=== PATIENT | male | born 1995 | race Caucasian/White ===

== ENCOUNTER → 2016-05-26 | Emergency (ER) | payer OTHER ==
[~2016-05-26] MED LIST: ONDANSETRON 4 MG/2 ML VIAL IVPUSH ONE; ONDANSETRON 4 MG/2 ML VIAL ONE; SODIUM CHLORIDE 0.9% 1000 ML INFUS.BAG IV ONE
[2016-05-26 16:32] VITALS: BP 137/95; PULSE 103; TEMP 97.8; BMI 25.8
[2016-05-26 20:18] LABS: MCH 28.5 pg (25.7-33.7); MCHC 32.2 g/dl (32.0-35.9); MEAN CELL VOLUME 88.5 fl (80-96); MEAN PLT VOLUME 11.8 fl (7.5-11.1); PLATELET COUNT 157 K/MM3 (134-434); RDW 13.7 % (11.9-15.9); WHITE BLOOD COUNT 17.6 K/mm3 (4.0-10.0)
[2016-05-26 21:00] LABS: ALBUMIN 4.7 g/dl (3.4-5.0); ANION GAP 8 (8-16); BILIRUBIN,TOTAL 1.2 mg/dL (0.2-1.0); CALCIUM 10.1 mg/dL (8.5-10.1); CO2 26 mmol/L (21-32); CREATININE 1.1 mg/dL (0.7-1.3); GLUCOSE,RANDOM 104 mg/dL (74-106); SGOT/AST 22 U/L (15-37); SGPT/ALT 34 U/L (12-78); TOT PROT 7.8 g/dl (6.4-8.2)
[2016-05-26 21:01] LABS: ALK PHOS 87 U/L (45-117)
[2016-05-26 21:08] LABS: PLATELET ESTIMATE ADEQUATE (NORMAL)
--- NOTE | 2016-05-26 21:30 | PDOC ---
History of Present Illness - General Chief Complaint: Pain, Acute Stated Complaint: VOMITING/DIARRHEA Time Seen by Provider: 05/26/16 19:32 - History of Present Illness Initial Comments: 05/26/16 21:26 CHIEF COMPLAINT: abdominal pain w/ persistent vomiting/diarrhea HISTORY OF PRESENT ILLNESS: 20 yo M with no PMH presents to ED with abdominal pain accompanied by vomiting and diarrhea since this morning. Patient reports having at least 8 episodes of vomiting and 6 episodes of diarrhea since 11 am today. He reports eating "halal food" around 6 pm last night and has not had anything since "other than a little Gatorade today, but then I threw it up." He has not eaten any solid foods today. He complains of a subjective fever at home but is not febrile on arrival to ED. He describes the pain as epigastric but denies any blood in his vomit or diarrhea. No recent travel or sick contacts. PAST MEDICAL HISTORY: Denies past medical history FAMILY HISTORY: Denies SOCIAL HISTORY: Lives at home with family. Denies tobacco, alcohol, illicit drug use. SURGICAL HISTORY: Denies ALLERGIES: No known drug allergies REVIEW OF SYSTEMS General/Constitutional: Denies fever or chills. Denies weakness, weight change. HEENT: Denies change in vision. Denies ear pain or discharge. Denies sore throat. Cardiovascular: Denies chest pain or shortness of breath. Respiratory: Denies cough, wheezing, or hemoptysis. Gastrointestinal: Nausea, vomiting, diarrhea since this morning. Denies rectal bleeding. Genitourinary: Denies dysuria, frequency, or change in urination. Musculoskeletal: Denies joint or muscle swelling or pain. Denies neck or back pain. Skin and breasts: Denies rash or easy bruising. Neurologic: Denies headache, vertigo, loss of consciousness, or loss of sensation. PHYSICAL EXAM General Appearance: Well-appearing, appropriately dressed. No apparent distress , no intoxication. HEENT: EOMI, PERRLA, normal ENT inspection, normal voice, TMs normal, pharynx normal. No conjunctival pallor. No photophobia, scleral icterus. Neck: Supple. Trachea midline. No tenderness, rigidity, carotid bruit, stridor , lymphadenopathy, or thyromegaly. Respiratory/Chest: Lungs CTAB. No shortness of breath, chest tenderness, respiratory distress, accessory muscle use. No crackles, rales, rhonchi, stridor , wheezing, dullness Cardiovascular: RRR. S1, S2. No JVD, murmur, bradycardia, tachycardia. Vascular Pulses: Dorsalis-Pedis (R): 2+, Dorsalis-Pedis (L): 2+ Gastrointestinal/Abdominal: Mild periumbilical tenderness on deep palpation. Normal bowel sounds. Abdomen soft, non-distended. No tenderness or rebound tenderness. No organomegaly, pulsatile mass, guarding, hernia, hepatomegaly, splenomegaly. Lymphatic: No adenopathy, tenderness. Musculoskeletal/Extremities: Normal inspection. FROM of all extremities, normal capillary refill. Pelvis Stable. No CVA tenderness. No tenderness to extremities, pedal edema, swelling, erythema or deformity. Integumentary: Appropriate color, dry, warm. No cyanosis, erythema, jaundice or rash Neurologic: color maker dyer II-XII intact. Fully oriented, alert. Appropriate mood/affect. Motor strength 5/5. No appreciable EOM palsy, facial droop or sensory deficit. 05/26/16 21:44 Past History - Past Medical History Allergies/Adverse Reactions: Allergies Allergy/AdvReac Type Severity Reaction Status Date / Time No Known Allergies Allergy Verified 05/26/16 16:29 Home Medications: Ambulatory Orders Ondansetron [Zofran *Odt*] 8 mg SL BID PRN #6 od.tablet 05/26/16 Other medical history: none - Psycho/Social/Smoking Cessation Hx Anxiety: No Suicidal Ideation: No Smoking History: Never smoked Have you smoked in the past 12 months: No Information on smoking cessation initiated: No Hx Alcohol Use: No Drug/Substance Use Hx: No Substance Use Type: None *Physical Exam - Vital Signs Last Vital Signs Temp Pulse Resp BP Pulse Ox 97.8 F 103 H 18 137/95 100 05/26/16 16:30 05/26/16 16:30 05/26/16 16:30 05/26/16 16:30 05/26/16 16:30 ED Treatment Course - LABORATORY CBC & Chemistry Diagram: 05/26/16 19:59 05/26/16 19:59 - ADDITIONAL ORDERS Additional order review: Laboratory Results 05/26/16 19:59 Sodium 140 Potassium 4.2 Chloride 106 Carbon Dioxide 26 Anion Gap 8 BUN 18 Creatinine 1.1 Creat Clearance w eGFR > 60 Random Glucose 104 Calcium 10.1 Total Bilirubin 1.2 H AST 22 ALT 34 Alkaline Phosphatase 87 Total Protein 7.8 Albumin 4.7 Lipase 59 L 05/26/16 19:59 RBC 5.88 H MCV 88.5 MCHC 32.2 RDW 13.7 MPV 11.8 H Neutrophils % 82.0 Lymphocytes % 3.0 L Monocytes % 5.0 - Medications Given in the ED: ED Medications Discontinued Medications Generic Name Dose Route Start Last Admin Trade Name Artis PRN Reason Stop Dose Admin Ondansetron HCl 8 mg 05/26/16 19:57 05/26/16 20:05 Zofran Injection IVPUSH 05/26/16 19:58 8 mg ONCE ONE Administration Sodium Chloride 1,000 ml 05/26/16 19:59 05/26/16 20:05 Normal Saline - IV 05/26/16 20:00 1,000 ml ONCE ONE Administration Medical Decision Making - Medical Decision Making 05/26/16 21:42 20 yo M with no significant PMH presents to ED with abdominal pain, vomiting, and diarrhea x 1 day. Patient's -CBC, CMP -IVF -Zofran WBC 17.6, otherwise unremarkable 05/26/16 21:44 Patient reassessed, states he is feeling much better and the abdominal pain has subsided. At this time he has no abdominal tenderness on deep palpation. Appendicitis, colitis, diverticulitis considered but unlikely given no abdominal tenderness and stable vital signs at this time. Elevated WBC likely secondary to viral gastroenteritis. Prescription for Zofran sent to pharmacy. Advised patient to take medication as prescribed and follow up with PCP this week. Advised patient of signs and symptoms for return to ED; patient verbalized understanding and agrees to plan. *DC/Admit/Observation/Transfer Diagnosis at time of Disposition: Viral gastroenteritis - Discharge Dispostion Disposition: HOME Condition at time of disposition: Stable Admit: No - Prescriptions Prescriptions: Ondansetron [Zofran *Odt*] 8 mg SL BID PRN #6 od.tablet PRN Reason: Nausea And/Or Vomiting - Referrals Referrals: STAFF,NOT ON [Primary Care Provider] - Smitha Figueroa MD [Staff Physician] - - Patient Instructions Printed Discharge Instructions: DI for Viral Gastroenteritis -- Adult, Gastroenteritis Diet Additional Instructions: Please take medication as prescribed and drink plenty of fluids. Please start food intake with a bland diet and advance as tolerated. As discussed, if you experience severe abdominal pain, persistent vomiting unrelieved by medication, fever, chills, or any new or worsening symptoms, please return to the ED. Please follow up with your primary care doctor this week to for continued monitoring and to establish care in this area.
== END | disposition home or self-care (01) ==
LOC: JER 16:24
PROC: 3E033GC Introduction of Other Therapeutic Substance into Peripheral Vein, Percutaneous Approach (ICD-10-PCS; principal; 2016-05-26)
DX: A08.4 Viral intestinal infection, unspecified (principal); B97.89 Other viral agents as the cause of diseases classified elsewhere
CPT/HCPCS: 36415; 80053; 83690; 85025; 96374; 99283-25

== ENCOUNTER 2017-04-04 12:54 | Emergency (ER) | payer OTHER ==
[2017-04-04 13:03] VITALS: BP 148/98; PULSE 115; TEMP 98.6; BMI 26.6
[2017-04-04] MEDS ORDERED: guaiFENesin/CODEINE 10 ML UNIT-DOSE CUPS PO ONE (13:58)
[2017-04-04] MEDS ORDERED: IBUPROFEN 600 MG TABLET (FP) PO ONE ×2 (13:58→14:05)
--- NOTE | 2017-04-04 13:58 | PDOC ---
History of Present Illness - General Chief Complaint: Cold Symptoms Stated Complaint: COUGH Time Seen by Provider: 04/04/17 13:24 History Source: Patient Exam Limitations: No Limitations - History of Present Illness Initial Comments: 04/04/17 14:22 Pt is a 21 y/o M who presents to the ED c/o cough for one month.Patient states that he has had a productive cough with green sputum for approximately 1 month. He also admits to congestion and rhinorrhea. He was seen at a pharmacy and complains more he was given a Z-Randell. He finished taking the Z-Randell 2 days ago. He states he does not feel that the Z-Randell helped him. Denies fevers, chills, shortness of breath, difficulty breathing, ear pain, throat pain, chest pain, abdominal pain, frequency, urgency and dysuria. Patient's mother was in the room with him and he asked her to step out. He inquired about STD testing as he states his girlfriend cheated on him. Denies frequency, dysuria, genital pain, discharge he was just curious because he wanted to make sure that he had no infections. Past History - Travel Traveled outside of the country in the last 30 days: No Close contact w/someone who was outside of country & ill: No - Past Medical History Allergies/Adverse Reactions: Allergies Allergy/AdvReac Type Severity Reaction Status Date / Time No Known Allergies Allergy Verified 04/04/17 12:58 Home Medications: Ambulatory Orders Guaifenesin Dm [Robitussin Dm] 10 ml PO Q4H #200 ml 04/04/17 COPD: No - Immunization History Immunization Up to Date: Yes - Suicide/Smoking/Psychosocial Hx Smoking History: Current some day smoker Have you smoked in the past 12 months: No Number of Cigarettes Smoked Daily: 2 Information on smoking cessation initiated: No Hx Alcohol Use: No Drug/Substance Use Hx: No Substance Use Type: None Review of Systems - Review of Systems Able to Perform ROS?: Yes Comments:: 04/04/17 14:36 CONSTITUTIONAL: Absent: fever, chills, diaphoresis, generalized weakness, malaise, loss of appetite HEENT: Absent: rhinorrhea, nasal congestion, throat pain, throat swelling, difficulty swallowing, mouth swelling, ear pain, eye pain, visual Changes CARDIOVASCULAR: Absent: chest pain, loss of consciousness, palpitations, irregular heart rate, peripheral edema RESPIRATORY: Present: productive cough with green sputum. Absent: cough, shortness of breath , dyspnea with exertion, orthopnea, wheezing, stridor, hemoptysis GASTROINTESTINAL: Absent: abdominal pain, abdominal distension, nausea, vomiting, diarrhea, constipation, melena, hematochezia GENITOURINARY: Absent: dysuria, frequency, urgency, hesitancy, hematuria, flank pain, genital pain MUSCULOSKELETAL: Absent: myalgia, arthralgia, joint swelling SKIN: Absent: rash, itching, pallor HEMATOLOGIC/IMMUNOLOGIC: Absent: easy bleeding, easy bruising, lymphadenopathy, frequent infections ENDOCRINE: Absent: unexplained weight gain, unexplained weight loss, heat intolerance, cold intolerance NEUROLOGIC: Absent: headache, focal weakness or paresthesias, dizziness, unsteady gait, seizure, mental status changes, bladder or bowel incontinence PSYCHIATRIC: Absent: anxiety, depression, suicidal or homicidal ideation, hallucinations. Is the patient limited Palestinian proficient: No *Physical Exam - Vital Signs Last Vital Signs Temp Pulse Resp BP Pulse Ox 98.6 F 115 H 18 148/98 98 04/04/17 12:59 04/04/17 12:59 04/04/17 12:59 04/04/17 12:59 04/04/17 12:59 - Physical Exam Comments: 04/04/17 14:37 GENERAL: Well developed, well nourished. Awake and alert. No acute distress. HEENT: Normocephalic, atraumatic. PERRLA, EOMI. No conjunctival pallor. Sclera are non- icteric. Moist mucous membranes. Oropharynx is clear. NECK: Supple. Full ROM. No JVD. Carotid pulses 2+ and symmetric, without bruits. No thyromegaly. No lymphadenopathy. CARDIOVASCULAR: Regular rate and rhythm. No murmurs, rubs, or gallops. Distal pulses are 2+ and symmetric. PULMONARY: No evidence of respiratory distress. Lungs clear to auscultation bilaterally, decreased lung sounds on the right. No wheezing, rales or rhonchi. ABDOMINAL: Soft. Non-tender. Non-distended. No rebound or guarding. No organomegaly. Normoactive bowel sounds. MUSCULOSKELETAL Normal range of motion at all joints. No bony deformities or tenderness. No CVA tenderness. EXTREMITIES: No cyanosis. No clubbing. No edema. No calf tenderness. SKIN: Warm and dry. Normal capillary refill. No rashes. No jaundice. NEUROLOGICAL: Alert, awake, appropriate. Cranial nerves 2-12 intact. No deficits to light touch and temperature in face, upper extremities and lower extremities. No motor deficits in the in face, upper extremities and lower extremities. Normoreflexic in the upper and lower extremities. Normal speech. Toes are down- going bilaterally. Gait is normal without ataxia. PSYCHIATRIC: Cooperative. Good eye contact. Appropriate mood and affect. ED Treatment Course - LABORATORY CBC & Chemistry Diagram: 04/04/17 14:14 04/04/17 14:14 Medical Decision Making - Medical Decision Making 04/04/17 14:39 Patient is a 21-year-old male with no past medical history who presents with a cough for 3 weeks. Patient just finished Z-Randell 2 days ago. Exam is with decreased lung sounds on the right side we will obtain chest x-ray. Family is also requesting blood work at this time. Patient is also requesting STD testing at this time. Explained to patient that he would have to wait until the results of the HIV testing her back which could take up to 2 hours. Patient states that he did not want to wait this long for his results. I told him I could refer him to our clinic for testing which he states he will do. 1.CBC, CMP 2.chest x-ray 3.Robitussin 4.reevaluate 04/04/17 14:56 Lab work shows elevated CBC, Hct, and Hgb, most likley dehydration. No leukocytosis. X-ray negative for pneumonia. Most likely URI. Will d/c home at this time. *DC/Admit/Observation/Transfer Diagnosis at time of Disposition: URI (upper respiratory infection) Qualifiers: URI type: unspecified viral URI Qualified Code(s): J06.9 - Acute upper respiratory infection, unspecified - Discharge Dispostion Disposition: HOME Condition at time of disposition: Good Admit: No - Referrals Referrals: Ketan Villa MD [Staff Physician] - - Patient Instructions Printed Discharge Instructions: DI for Viral Upper Respiratory Infection -- Adult Additional Instructions: You have an upper respiratory infection. Your chest x-ray was negative. Your lab work shows that you're dehydrated. Please drink plenty of fluids including water. Please take the Robitussin your prescribed for your cough. He may take Tylenol or Motrin as needed for pain. Follow-up with the referral provided for further testing which she requested. Return to the emergency department if you have worsening fevers, chills, worsening cough, shortness of breath or any changes in your symptoms. - Post Discharge Activity
[2017-04-04 14:25] LABS: BASOPHIL 0.5 % (0-2.0); EOSINOPHIL 3.4 % (0-4.5); MCH 30.2 pg (25.7-33.7); MCHC 33.8 g/dl (32.0-35.9); MEAN CELL VOLUME 89.2 fl (80-96); MEAN PLT VOLUME 10.9 fl (7.5-11.1); NEUTROPHILS 61.9 % (42.8-82.8); PLATELET COUNT 183 K/MM3 (134-434); RDW 13.1 % (11.9-15.9); WHITE BLOOD COUNT 7.8 K/mm3 (4.0-10.0)
[2017-04-04] MEDS ORDERED: guaiFENesin/CODEINE 5 ML UNIT-DOSE CUPS PO ONE (14:32)
[2017-04-04 14:47] LABS: ANION GAP 5 (8-16); CALCIUM 9.8 mg/dL (8.5-10.1); CO2 29 mmol/L (21-32); GLUCOSE,RANDOM 100 mg/dL (74-106)
== END 2017-04-04 15:07 | disposition home or self-care (01) ==
LOC: JERFT 12:54
DX: J06.9 Acute upper respiratory infection, unspecified (principal); B97.89 Other viral agents as the cause of diseases classified elsewhere; F17.210 Nicotine dependence, cigarettes, uncomplicated
CPT/HCPCS: 36415; 71020-TC; 80048; 85025; 99282-25

== ENCOUNTER 2017-06-20 16:29 | Emergency (ER) | payer BC, OTHER ==
[2017-06-20 16:36] VITALS: BP 147/78; PULSE 92; TEMP 98; BMI 28.1
--- NOTE | 2017-06-20 17:30 | PDOC ---
History of Present Illness - General Chief Complaint: Respiratory Stated Complaint: FLU SYMPTOMS Time Seen by Provider: 06/20/17 17:14 History Source: Patient Exam Limitations: No Limitations - History of Present Illness Initial Comments: 06/20/17 17:25 Patient came for evaluation of cough, fevers, headache and earache, sore throat pain and general body aches. "I think I have the flu" Timing/Duration: reports: changing over time, getting worse Severity: reports: mild, moderate Associated Symptoms: reports: cough, earache, facial pain, fever/chills, headache, nasal congestion, sore throat, wheezing Past History - Travel Traveled outside of the country in the last 30 days: No Close contact w/someone who was outside of country & ill: No - Past Medical History Allergies/Adverse Reactions: Allergies Allergy/AdvReac Type Severity Reaction Status Date / Time No Known Allergies Allergy Verified 06/20/17 16:36 Home Medications: Ambulatory Orders Oseltamivir Phosphate [Tamiflu -] 75 mg PO BID #10 capsule 06/20/17 COPD: No Other medical history: born with vsd - Immunization History Immunization Up to Date: Yes - Suicide/Smoking/Psychosocial Hx Smoking History: Current some day smoker Have you smoked in the past 12 months: No Number of Cigarettes Smoked Daily: 2 Information on smoking cessation initiated: No Hx Alcohol Use: No Drug/Substance Use Hx: No Substance Use Type: None Review of Systems - Review of Systems Able to Perform ROS?: Yes Is the patient limited Dominican proficient: Yes Constitutional: Yes: Symptoms Reported, See HPI, Fever, Malaise HEENTM: Yes: Symptoms Reported, See HPI, Nose Congestion, Mouth Pain, Difficulty Swallowing Respiratory: Yes: Symptoms reported, See HPI, Cough. No: Wheezing ABD/GI: Yes: Symptoms Reported, Nausea Neurological: Yes: Symptoms reported, See HPI, Headache (frontal ) All Other Systems: Reviewed and Negative *Physical Exam - Vital Signs Last Vital Signs Temp Pulse Resp BP Pulse Ox 98 F 92 H 18 147/78 99 06/20/17 16:33 06/20/17 16:33 06/20/17 16:33 06/20/17 16:33 06/20/17 16:33 - Physical Exam General Appearance: Yes: Appropriately Dressed, Apparent Distress HEENT: positive: LOLI (glassy ), TMs Normal, Tonsillar Erythema, Nasal Congestion, Rhinorrhea (clear ). negative: Pharynx Normal Neck: positive: Supple, Lymphadenopathy (R), Lymphadenopathy (L). negative: Tender Respiratory/Chest: positive: Chest Tender, Lungs Clear (coarse but clear ), Normal Breath Sounds Cardiovascular: positive: Regular Rhythm Gastrointestinal/Abdominal: positive: Tender, Soft Extremity: positive: Normal Capillary Refill, Normal Inspection Integumentary: positive: Normal Color, Dry Neurologic: positive: sound person II-XII NML intact, Fully Oriented, Alert, Normal Mood/ Affect, Normal Response, Motor Strength 5 Progress Note - Progress Note Progress Note: Upper respiratory infection, probable influenza. We'll treat with Tamiflu *DC/Admit/Observation/Transfer Diagnosis at time of Disposition: Influenzal acute upper respiratory infection - Discharge Dispostion Disposition: HOME Condition at time of disposition: Stable Admit: No - Referrals - Patient Instructions Printed Discharge Instructions: DI for Influenza -- Adult Additional Instructions: Rest, drink lots of fluids: Teas, water, soups, Pedialyte Saltwater gargles Steamy showers/seem to face break up mucus Old-fashioned treatments help! Avoid contact with others until fevers and cough resolved as this is very contagious Lots of handwashing and good hygiene Continue [id number] medications for symptomatic relief Tylenol or Motrin for fever and pain Take all of Tamiflu as directed: 1 tab every 12 hours for 5 days Followup with private physician in one to 2 days as needed or if worsening Return to emergency department for worsened symptoms, fevers, dehydration Influenza takes between 5 and 7 days for resolution To not participate in any activity, work, or school until fevers and cough are gone for at least one day - Post Discharge Activity Forms/Work/School Notes: Back to Work
== END 2017-06-20 17:41 | disposition home or self-care (01) ==
LOC: JER 16:29 → JERFT 16:29
DX: J11.1 Influenza due to unidentified influenza virus with other respiratory manifestations (principal)
CPT/HCPCS: 99281-25

== ENCOUNTER 2021-05-23 08:47 | Emergency (ER) | payer BC, OTHER ==
[2021-05-23 09:08] VITALS: BP 147/87; PULSE 99; TEMP 98.9; BMI 28.1
[2021-05-23] MEDS ORDERED: KETOROLAC TROMETHAMINE 30 MG/1 ML VIAL IM ONE (09:41)
[2021-05-23] MEDS ORDERED: CYCLOBENZAPRINE HCL 10 MG TABLET (FP) PO ONE (09:50)
[2021-05-23] MEDS ORDERED: CYCLOBENZAPRINE HCL 10 MG TABLET (FP) ONE (09:58)
[2021-05-23] MEDS ORDERED: KETOROLAC TROMETHAMINE 30 MG/1 ML VIAL ONE (09:58)
== END 2021-05-23 10:54 | disposition home or self-care (01) ==
LOC: JERFT 08:47
PROC: 3E0233Z Introduction of Anti-inflammatory into Muscle, Percutaneous Approach (ICD-10-PCS; principal; 2021-05-23)
DX: M25.512 Pain in left shoulder (principal); V47.5XXA Car driver injured in collision with fixed or stationary object in traffic accident, initial encounter
CPT/HCPCS: 73030-TC-LT-FY; 99284-25

== ENCOUNTER 2023-09-30 16:49 | Emergency (ER) | payer OTHER ==
[2023-09-30 17:03] VITALS: BP 147/95; PULSE 93; RESP 16; TEMP 98.7; BMI 29.7
[2023-09-30] MEDS ORDERED: ACETAMINOPHEN 500 MG TABLET (FP) ONE (17:40)
[2023-09-30] MEDS: ACETAMINOPHEN 500 MG TABLET (FP) PO ONE (17:44)
== END 2023-09-30 18:57 | disposition home or self-care (01) ==
LOC: FER 16:49
DX: M25.561 Pain in right knee (principal); V43.52XA Car driver injured in collision with other type car in traffic accident, initial encounter; Y92.410 Unspecified street and highway as the place of occurrence of the external cause
CPT/HCPCS: 73564-TC-LT-FY; 99283-25

== ENCOUNTER 2023-12-31 09:57 | Emergency (ER) | payer BC, OTHER ==
[2023-12-31 10:02] VITALS: BP 152/83; PULSE 82; RESP 18; TEMP 98.3; BMI 31.3
[2023-12-31] MEDS ORDERED: TRIAMCINOLONE ACET 40MG/1ML VIAL ONE (10:11)
[2023-12-31] MEDS: TRIAMCINOLONE ACET 40MG/1ML VIAL IM ONE (10:18)
== END 2023-12-31 10:26 | disposition home or self-care (01) ==
LOC: JERFT 09:57
PROC: 3E023GC Introduction of Other Therapeutic Substance into Muscle, Percutaneous Approach (ICD-10-PCS; principal; 2023-12-31)
DX: L25.5 Unspecified contact dermatitis due to plants, except food (principal); R21 Rash and other nonspecific skin eruption
CPT/HCPCS: 99284-25